=== PATIENT | female | born 1970 | race African-American/Black ===

== ENCOUNTER → 2021-07-31 | Outpatient (CLI) | payer OTHER ==
[~2021-07-31] MED LIST: IOPAMIDOL 370 MG/ML 200 ML INFUS..BTL INJ ONE; SODIUM CHLORIDE 0.9% 50ML 50 ML ONE
== END ==
LOC: CT 16:02
PROVIDERS: ATTEND Surgery
DX: R10.9 Unspecified abdominal pain (principal)
CPT/HCPCS: 74177; Q9967